=== PATIENT | female | born 1960 | race Caucasian/White ===

== ENCOUNTER 2019-01-29 11:39 | Emergency (ER) | payer BC, OTHER ==
[2019-01-29] MEDS ORDERED: Ondansetron ODT 4 MG TAB ONE (11:52)
== END 2019-01-29 12:49 | disposition home or self-care (01) ==
LOC: BURERS 11:39
DX: R13.10 Dysphagia, unspecified (principal); G43.909 Migraine, unspecified, not intractable, without status migrainosus; F32.9 Major depressive disorder, single episode, unspecified
CPT/HCPCS: J1610; Q0162

== ENCOUNTER 2023-05-17 12:01 | Outpatient (CLI) | payer BC | END 2023-05-17 12:02 | disposition home or self-care (01) | LOC: BURRAD 12:01 | PROVIDERS: ATTEND Neurological Surgery | DX: S12.500A Unspecified displaced fracture of sixth cervical vertebra, initial encounter for closed fracture (principal) | CPT/HCPCS: 72040 ==

== ENCOUNTER 2023-06-19 16:57 | Emergency (ER) | payer BC ==
[~2023-06-19 16:57] MED LIST: Iopamidol 370 76% 100 ML VIAL ONE
[2023-06-19] MEDS ORDERED: Ondansetron ODT 4 MG TAB ONE (17:40)
[2023-06-19] MEDS ORDERED: Morphine 4 MG/ML VIAL ONE (17:40)
[2023-06-19] MEDS ORDERED: Pantoprazole 40 MG VIAL ONE (17:40)
[2023-06-19 17:45] LABS: Bilirubin Negative (Negative); Blood, Urine Negative (Negative); Glucose, Urine (Dipstick) Negative (Negative); Ketone, Urine 15 mg/dL (Negative); Leukocyte Negative (Negative); Nitrite Negative (Negative); Protein, Urine (Dipstick) Negative (Neg-Trace); Urobilinogen 0.2 mg/dL (Less than 2)
[2023-06-19 17:47] LABS: Clarity Hazy (Clear)
[2023-06-19 17:50] LABS: Bacteria/HPF 2+ HPF (None Seen); CAUTI Indications for Culture Acute Hematuria; RBC/HPF 0-3 HPF (0-3); WBC/HPF 0-3 HPF (0-3)
[2023-06-19 17:51] LABS: Urine Culture Reflex No No
[2023-06-19 18:02] LABS: ALT (SGPT) 47 U/L (8-55); AST (SGOT) 61 U/L (5-34); Albumin 3.1 g/dL (3.5-5.0); Alkaline Phosphatase 73 U/L (40-110); Anion Gap 13 mmol/L (10-20); BUN (Urea Nitrogen) 9 mg/dL (9.8-20.1); Bilirubin, Total 1.2 mg/dL (0.2-1.2); Calc. Creatinine Clearance 0 mL/min (70-130); Carbon Dioxide 22 mmol/L (22-29); Chloride 106 mmol/L (98-107); Estimated GFR 103; Globulin 2.5 g/dL (2.4-3.5); Glucose 76 mg/dL (70-105); Hematocrit 37.3 % (36.0-47.0); Hemoglobin 11.9 g/dL (12.0-16.0); Lipase 33 U/L (8-78); Mean Corpuscular HGB CONC 31.9 g/dL (32.0-36.0); Mean Corpuscular Hemoglobin 31.1 pg (27.0-31.0); Mean Corpuscular Volume 97.3 fl (78.0-98.0); Mean Platelet Volume 6.4 fL (7.4-10.4); Platelet Count 103 10x3/uL (130-400); Potassium 4.3 mmol/L (3.5-5.1); Protein, Total 5.6 g/dL (6.0-8.3); RBC Distribution Width 16.7 % (11.5-14.5); Red Blood Cell (RBC) Count 3.83 mill/uL (4.20-5.40); Sodium 137 mmol/L (136-145); White Blood Cell (WBC) Count 8.6 10x3/uL (4.8-10.8)
[2023-06-19 18:06] LABS: Band 16 % (5-11); Eosinophils 3 % (0-10); Lymphocytes 6 % (21-51); MDiff Complete? YES; Neutrophil 74 % (42-75)
[2023-06-19] MEDS ORDERED: Lidocaine Viscous Sol 2% 15 ml UD Cup ONE (19:28)
[2023-06-19] MEDS ORDERED: Milk Of Magnesia 30 ML UDCUP ONE (19:28)
== END 2023-06-19 20:16 | disposition home or self-care (01) ==
LOC: BURERS 16:57
DX: K29.00 Acute gastritis without bleeding (principal); K59.00 Constipation, unspecified
CPT/HCPCS: 74177; 80053; 81001; 82274; 83690; 85025; 96374; 96375; C9113; J2270; Q0162; Q9967

== ENCOUNTER 2023-12-29 13:58 | Emergency (ER) | payer BC ==
[2023-12-29 14:36] LABS: #Eosinphils 0.1 thou/uL (0.0-0.7); #Lymphocytes 0.5 thou/uL (1.20-3.40); #Monocytes 0.3 thou/uL (0.11-0.59); #Neutrophils 2.3 thou/uL (1.40-6.50); %Eosinophils 2.5 % (0.0-10.0); %Lymphocytes 15.8 % (21.0-51.0); %Monocytes 7.8 % (0.0-10.0); Hematocrit 41.4 % (36.0-47.0); Hemoglobin 13.2 g/dL (12.0-16.0); Mean Corpuscular HGB CONC 31.9 g/dL (32.0-36.0); Mean Corpuscular Hemoglobin 29.6 pg (27.0-31.0); Mean Corpuscular Volume 92.6 fl (78.0-98.0); Mean Platelet Volume 6.4 fL (7.4-10.4); Platelet Count 119 10x3/uL (130-400); RBC Distribution Width 15.1 % (11.5-14.5); Red Blood Cell (RBC) Count 4.47 mill/uL (4.20-5.40); White Blood Cell (WBC) Count 3.2 10x3/uL (4.8-10.8)
[2023-12-29 14:37] LABS: MDiff Complete? YES
[2023-12-29 14:54] LABS: ALT (SGPT) 239 U/L (8-55); AST (SGOT) 175 U/L (5-34); Albumin 3.2 g/dL (3.4-4.8); Alkaline Phosphatase 229 U/L (40-110); Anion Gap 13 mmol/L (10-20); BUN (Urea Nitrogen) 16 mg/dL (9.8-20.1); Bilirubin, Total 1.3 mg/dL (0.2-1.2); Calc. Creatinine Clearance 0 mL/min (70-130); Calcium 8.6 mg/dL (7.8-10.44); Carbon Dioxide 23 mmol/L (23-31); Chloride 110 mmol/L (98-107); Estimated GFR 94; Globulin 2.8 g/dL (2.4-3.5); Glucose 106 mg/dL (80-115); Lipase 34 U/L (8-78); Potassium 3.6 mmol/L (3.5-5.1); Sodium 142 mmol/L (136-145)
[2023-12-29] MEDS ORDERED: Morphine 4 MG/ML VIAL ONE (15:13)
[2023-12-29 16:18] LABS: Bilirubin Small (Negative); Blood, Urine Trace (Negative); Clarity Clear (Clear); Glucose, Urine (Dipstick) Negative (Negative); Ketone, Urine Negative (Negative); Leukocyte Negative (Negative); Nitrite Negative (Negative); Protein, Urine (Dipstick) 30 mg/dL (Neg-Trace); pH, Urine 5.5 (5.0-9.0)
[2023-12-29 16:21] LABS: Bacteria/HPF 2+ HPF (None Seen); CAUTI Indications for Culture Dysuria,urgency,freq; RBC/HPF None Seen HPF (0-3); WBC/HPF 0-3 HPF (0-3)
[2023-12-29 16:22] LABS: Urine Culture Reflex No No
== END 2023-12-29 18:40 | disposition home or self-care (01) ==
LOC: BURERS 13:58
DX: R18.8 Other ascites (principal); C80.1 Malignant (primary) neoplasm, unspecified; C78.7 Secondary malignant neoplasm of liver and intrahepatic bile duct; C79.51 Secondary malignant neoplasm of bone; C79.31 Secondary malignant neoplasm of brain; K76.6 Portal hypertension
CPT/HCPCS: 36415; 74177; 80053; 81001; 83605; 83690; 85025; 96374; J2270